=== PATIENT | male | born 1945 | race Caucasian/White ===

== ENCOUNTER 2017-04-27 08:37 | Day surgery (SDC) | payer OTHER ==
[~2017-04-27] VITALS: Ht 175.3 cm; Wt 107.4 kg
[~2017-04-27 08:37] MED LIST: AMLO5 PO; Aspir 8181 MG PO; CALCIUM PO; CYCL10 PO; Co Q-10300 MG PO; Depo-Testos200 MG/ML IM; FISH1000 PO; GLIM4 PO; Glucophage1000 MG PO; HYDCHL25; Humulin N100 UNIT/1 SQ; INS70/30I SC; IRON150C PO; IRON18 MG PO; LISI20; MELO7.5 PO; METF500; METO25ER PO; Micro-K10 MEQ; NIAC250ER; NIACIN ER1000 MG PO; NITR.6SL SL; Neurontin300 MG PO; Omeprazole20 M1; PRAV20 PO; Simvastatin20 MG PO; TAMS.4ER PO; VITAMIN D33000 UNIT PO; Zestril40 MG
== END 2017-04-27 10:40 | disposition home or self-care (01) ==
LOC: ORSCSDS 08:37
PROVIDERS: Internal Medicine Gastroenterology
PROC: 0DB48ZX Excision of Esophagogastric Junction, Via Natural or Artificial Opening Endoscopic, Diagnostic (ICD-10-PCS; principal; 2017-04-27 09:45)
DX: K74.69 Other cirrhosis of liver (principal); K76.0 Fatty (change of) liver, not elsewhere classified; Z87.891 Personal history of nicotine dependence; Z95.1 Presence of aortocoronary bypass graft; I48.91 Unspecified atrial fibrillation; I10 Essential (primary) hypertension; E11.42 Type 2 diabetes mellitus with diabetic polyneuropathy; Z79.01 Long term (current) use of anticoagulants; Z79.82 Long term (current) use of aspirin; Z79.4 Long term (current) use of insulin; Z79.899 Other long term (current) drug therapy
CPT/HCPCS: 82947; 88305; J7120

== ENCOUNTER 2018-03-29 00:23 | Day surgery (SDC) | payer OTHER ==
[~2018-03-29 00:23] MED LIST changes: -ATOR80 PO; -HEMOCYTE PO; -Humulin N100 UNIT/1 SC; -METOPROLOL TART75 MG PO; -REPA1 PO; -UBID100 PO
[2018-03-30] MEDS ORDERED: ATOR80 PO (11:21)
[2018-03-30] MEDS ORDERED: UBID100 PO (11:22)
[2018-03-30] MEDS ORDERED: HEMOCYTE PO (11:23)
[2018-03-30] MEDS ORDERED: Humulin N100 UNIT/1 SC ×2 (11:25)
[2018-03-30] MEDS ORDERED: METOPROLOL TART75 MG PO (11:27)
[2018-03-30] MEDS ORDERED: REPA1 PO (11:29)
== END 2018-03-29 12:26 | disposition home or self-care (01) ==
LOC: ATC 00:23
DX: M46.36 Infection of intervertebral disc (pyogenic), lumbar region (principal); I25.10 Atherosclerotic heart disease of native coronary artery without angina pectoris; E66.9 Obesity, unspecified; E11.9 Type 2 diabetes mellitus without complications; Z79.899 Other long term (current) drug therapy; B95.1 Streptococcus, group B, as the cause of diseases classified elsewhere
CPT/HCPCS: 96365; 96367; J0696; J0878

== ENCOUNTER → 2018-03-29 | Outpatient (CLI) | payer MEDICARE ==
[~2018-03-29] MED LIST changes: +ATOR80 PO; +HEMOCYTE PO; -HYDCHL25; +HYDCHL25 PO; +Humulin N100 UNIT/1 SC; +METOPROLOL TART75 MG PO; +REPA1 PO; +UBID100 PO
[2018-03-31 14:01] LABS: Stool Occult Bld Immuno 1 Negative (NEGATIVE)
== END | disposition home or self-care (01) ==
LOC: LAB SHORT 18:20 → LAB 18:20
PROVIDERS: Internal Medicine Gastroenterology
DX: D64.9 Anemia, unspecified (principal)
CPT/HCPCS: 82274

== ENCOUNTER 2018-03-30 00:09 | Day surgery (SDC) | payer OTHER ==
[~2018-03-30 00:09] MED LIST changes: -ATOR80 PO; -HEMOCYTE PO; -Humulin N100 UNIT/1 SC; -METOPROLOL TART75 MG PO; -REPA1 PO; -UBID100 PO
[2018-03-30] MEDS ORDERED: ATOR80 PO (11:21)
[2018-03-30] MEDS ORDERED: UBID100 PO (11:22)
[2018-03-30] MEDS ORDERED: HEMOCYTE PO (11:23)
[2018-03-30] MEDS ORDERED: Humulin N100 UNIT/1 SC ×2 (11:25)
[2018-03-30] MEDS ORDERED: METOPROLOL TART75 MG PO (11:27)
[2018-03-30] MEDS ORDERED: REPA1 PO (11:29)
== END 2018-03-30 11:51 | disposition home or self-care (01) ==
LOC: ATC 00:09
DX: M46.36 Infection of intervertebral disc (pyogenic), lumbar region (principal); I25.10 Atherosclerotic heart disease of native coronary artery without angina pectoris; E66.9 Obesity, unspecified; E11.9 Type 2 diabetes mellitus without complications; B95.1 Streptococcus, group B, as the cause of diseases classified elsewhere; Z79.899 Other long term (current) drug therapy
CPT/HCPCS: 96365; 96368; J0696; J0878

== ENCOUNTER → 2018-03-30 | Outpatient (CLI) | payer MEDICARE ==
[~2018-03-30] MED LIST changes: +ATOR80 PO; +HEMOCYTE PO; +Humulin N100 UNIT/1 SC; +METOPROLOL TART75 MG PO; +REPA1 PO; +UBID100 PO
[2018-04-02 13:58] LABS: Stool Occult Bld Immuno 1 Negative (NEGATIVE)
== END | disposition home or self-care (01) ==
LOC: LAB 08:21 → LAB SHORT 08:21
PROVIDERS: Internal Medicine Gastroenterology
DX: D64.9 Anemia, unspecified (principal)
CPT/HCPCS: 82274

== ENCOUNTER 2018-03-31 00:21 | Day surgery (SDC) | payer OTHER ==
[~2018-03-31 00:21] MED LIST changes: +ATOR80 PO; +HEMOCYTE PO; +Humulin N100 UNIT/1 SC; +METOPROLOL TART75 MG PO; +REPA1 PO; +UBID100 PO
== END 2018-03-31 11:50 | disposition home or self-care (01) ==
LOC: ATC 00:21
DX: M46.36 Infection of intervertebral disc (pyogenic), lumbar region (principal); I25.10 Atherosclerotic heart disease of native coronary artery without angina pectoris; E66.9 Obesity, unspecified; E11.9 Type 2 diabetes mellitus without complications; B95.1 Streptococcus, group B, as the cause of diseases classified elsewhere; Z79.899 Other long term (current) drug therapy
CPT/HCPCS: 96365; 96368; J0696; J0878

== ENCOUNTER 2018-04-01 10:51 | Day surgery (SDC) | payer OTHER | END 2018-04-01 12:00 | disposition home or self-care (01) | LOC: ATC 10:51 | DX: M46.36 Infection of intervertebral disc (pyogenic), lumbar region (principal); I25.10 Atherosclerotic heart disease of native coronary artery without angina pectoris; E66.9 Obesity, unspecified; E11.9 Type 2 diabetes mellitus without complications; B95.1 Streptococcus, group B, as the cause of diseases classified elsewhere; Z79.899 Other long term (current) drug therapy | CPT/HCPCS: 96365; 96367; J0696; J0878 ==

== ENCOUNTER 2018-04-02 08:59 | Day surgery (SDC) | payer OTHER | END 2018-04-02 10:10 | disposition home or self-care (01) | LOC: ATC 08:59 | DX: M46.36 Infection of intervertebral disc (pyogenic), lumbar region (principal); I25.10 Atherosclerotic heart disease of native coronary artery without angina pectoris; E66.9 Obesity, unspecified; E11.9 Type 2 diabetes mellitus without complications; B95.1 Streptococcus, group B, as the cause of diseases classified elsewhere; Z79.899 Other long term (current) drug therapy | CPT/HCPCS: 96365; 96367; J0696; J0878 ==

== ENCOUNTER 2018-04-03 00:09 | Day surgery (SDC) | payer OTHER ==
[2018-04-03 11:24] LABS: BASOPHILS ABSOLUTE AUTO 0.02 K/mm3 (0.00-0.23); BASOPHILS PERCENT AUTO 1 % (0-2); EOSINOPHILS PERCENT AUTO 5 % (0-6); Hematocrit 26.7 % (37.0-53.0); Hemoglobin 8.2 g/dL (13.5-17.5); IMMATURE GRAN ABSOLUTE AUTO 0.04 K/mm3 (0.00-0.10); IMMATURE GRAN PERCENT AUTO 1 % (0-1); LYMPHOCYTES ABSOLUTE AUTO 0.79 K/mm3 (0.84-5.20); LYMPHOCYTES PERCENT AUTO 18 % (21-46); MONOCYTES ABSOLUTE AUTO 0.31 K/mm3 (0.16-1.47); MONOCYTES PERCENT AUTO 7 % (4-13); Mean Corpuscular HGB 26.8 pg (26.0-34.0); Mean Corpuscular HGB Conc 30.7 g/dL (31.5-36.5); Mean Corpuscular Volume 87 fL (80-100); Mean Platelet Volume 9.2 fL (9.1-12.4); NEUTROPHILS ABSOLUTE AUTO 3.08 K/mm3 (1.96-9.15); NEUTROPHILS PERCENT AUTO 69 % (41-73); Platelet Count 199 K/mm3 (150-400); RDW Coefficient Variation 14.2 % (11.7-14.2); RDW Standard Deviation 44.3 fL (35.1-46.3); Red Blood Cell Count 3.06 M/mm3 (4.30-5.90); White Blood Cell Count 4.44 K/mm3 (4.00-11.30)
[2018-04-03 11:44] LABS: Alanine Aminotransfer (ALT/SGP 82 U/L (12-78); Albumin/Globulin Ratio 0.7 (0.8-1.8); Alk Phos 120 U/L (50-136); Anion Gap 9 mmol/L (6-16); Aspartate Aminotrans (AST/SGOT 44 U/L (12-37); Bilirubin, Total 0.3 mg/dL (0.1-1.0); Blood Urea Nitrogen 20 mg/dL (8-24); Bun/Creatinine Ratio 23.6 (12.0-20.0); CO2, Blood 25 mmol/L (21-32); CPK Creatine Kinase 187 U/L (39-308); Calcium, Blood 8.5 mg/dL (8.5-10.1); Chloride, Blood 106 mmol/L (98-108); Creatine Kinase MB 3.4 ng/mL (0.0-3.6); Creatine Kinase MB Index 1.8 (0.0-4.0); Creatinine, Blood 0.85 mg/dL (0.60-1.20); Globulin, Blood 4.1 g/dL (2.2-4.0); Glomerular Filtration Rate >60 (60-); Glucose, Blood 97 mg/dL (70-99); Potassium, Blood 4.2 mmol/L (3.5-5.5); Sodium, Blood 140 mmol/L (136-145); Total Protein, Blood 7.1 g/dL (6.4-8.2)
--- NOTE | 2018-04-03 15:51 | NUR ---
LAB RESULTS FROM TODAY FAXED TO DR. TINAJERO'S OFFICE.
== END 2018-04-03 23:05 | disposition home or self-care (01) ==
LOC: ATC 00:09
DX: M46.36 Infection of intervertebral disc (pyogenic), lumbar region (principal); I25.10 Atherosclerotic heart disease of native coronary artery without angina pectoris; E66.9 Obesity, unspecified; E11.9 Type 2 diabetes mellitus without complications; B95.1 Streptococcus, group B, as the cause of diseases classified elsewhere; Z79.899 Other long term (current) drug therapy
CPT/HCPCS: 80053; 82550; 82553; 85025; 86140; 96365; 96368; J0696; J0878

== ENCOUNTER 2018-04-04 00:02 | Day surgery (SDC) | payer OTHER | END 2018-04-04 12:10 | disposition home or self-care (01) | LOC: ATC 00:02 | DX: M46.36 Infection of intervertebral disc (pyogenic), lumbar region (principal); I25.10 Atherosclerotic heart disease of native coronary artery without angina pectoris; E66.9 Obesity, unspecified; E11.9 Type 2 diabetes mellitus without complications; B95.1 Streptococcus, group B, as the cause of diseases classified elsewhere; Z79.899 Other long term (current) drug therapy | CPT/HCPCS: 96365; 96368; J0696; J0878 ==

== ENCOUNTER 2018-04-05 00:10 | Day surgery (SDC) | payer OTHER | END 2018-04-05 11:02 | disposition home or self-care (01) | LOC: ATC 00:10 | DX: M46.36 Infection of intervertebral disc (pyogenic), lumbar region (principal); I25.10 Atherosclerotic heart disease of native coronary artery without angina pectoris; E66.9 Obesity, unspecified; E11.9 Type 2 diabetes mellitus without complications; Z79.899 Other long term (current) drug therapy; B95.1 Streptococcus, group B, as the cause of diseases classified elsewhere | CPT/HCPCS: 96365; 96368; J0696; J0878 ==

== ENCOUNTER 2018-04-06 00:15 | Day surgery (SDC) | payer OTHER | END 2018-04-06 11:11 | disposition home or self-care (01) | LOC: ATC 00:15 | DX: T81.42XA Infection following a procedure, deep incisional surgical site, initial encounter (principal); I25.10 Atherosclerotic heart disease of native coronary artery without angina pectoris; I48.91 Unspecified atrial fibrillation; I10 Essential (primary) hypertension; E11.9 Type 2 diabetes mellitus without complications; Z79.4 Long term (current) use of insulin; A49.01 Methicillin susceptible Staphylococcus aureus infection, unspecified site | CPT/HCPCS: 96365; 96368; J0696; J0878 ==

== ENCOUNTER 2018-04-07 00:58 | Day surgery (SDC) | payer OTHER | END 2018-04-07 10:45 | disposition home or self-care (01) | LOC: ATC 00:58 | DX: T81.49XA Infection following a procedure, other surgical site, initial encounter (principal); B99.8 Other infectious disease; I25.10 Atherosclerotic heart disease of native coronary artery without angina pectoris; I10 Essential (primary) hypertension; E11.9 Type 2 diabetes mellitus without complications | CPT/HCPCS: 96365; 96368; J0878; J1335 ==

== ENCOUNTER 2018-04-08 11:00 | Day surgery (SDC) | payer OTHER | END 2018-04-08 23:07 | disposition home or self-care (01) | LOC: ATC 11:00 | DX: T81.42XA Infection following a procedure, deep incisional surgical site, initial encounter (principal); A49.01 Methicillin susceptible Staphylococcus aureus infection, unspecified site | CPT/HCPCS: 96365; 96368; J0696; J0878 ==

== ENCOUNTER 2018-04-09 10:31 | Day surgery (SDC) | payer OTHER | END 2018-04-09 22:43 | disposition home or self-care (01) | LOC: ATC 10:31 | DX: T81.42XA Infection following a procedure, deep incisional surgical site, initial encounter (principal); A49.01 Methicillin susceptible Staphylococcus aureus infection, unspecified site; E11.9 Type 2 diabetes mellitus without complications; I25.10 Atherosclerotic heart disease of native coronary artery without angina pectoris | CPT/HCPCS: 96365; 96368; J0696; J0878 ==

== ENCOUNTER 2018-04-10 00:12 | Day surgery (SDC) | payer OTHER ==
[2018-04-10 11:23] LABS: Hematocrit 28.1 % (37.0-53.0); Hemoglobin 8.8 g/dL (13.5-17.5); Mean Corpuscular HGB 27.2 pg (26.0-34.0); Mean Corpuscular HGB Conc 31.3 g/dL (31.5-36.5); Mean Corpuscular Volume 87 fL (80-100); Mean Platelet Volume 9.2 fL (9.1-12.4); Platelet Count 190 K/mm3 (150-400); RDW Coefficient Variation 14.6 % (11.7-14.2); RDW Standard Deviation 46.5 fL (35.1-46.3); Red Blood Cell Count 3.23 M/mm3 (4.30-5.90); White Blood Cell Count 3.84 K/mm3 (4.00-11.30)
[2018-04-10 11:50] LABS: Alanine Aminotransfer (ALT/SGP 46 U/L (12-78); Albumin, Blood 3.4 g/dL (3.4-5.0); Albumin/Globulin Ratio 0.9 (0.8-1.8); Alk Phos 139 U/L (50-136); Anion Gap 8 mmol/L (6-16); Aspartate Aminotrans (AST/SGOT 29 U/L (12-37); Bilirubin, Total 0.4 mg/dL (0.1-1.0); Blood Urea Nitrogen 31 mg/dL (8-24); Bun/Creatinine Ratio 31.1 (12.0-20.0); CO2, Blood 24 mmol/L (21-32); CPK Creatine Kinase 394 U/L (39-308); Calcium, Blood 8.4 mg/dL (8.5-10.1); Chloride, Blood 108 mmol/L (98-108); Creatine Kinase MB 7.2 ng/mL (0.0-3.6); Creatine Kinase MB Index 1.8 (0.0-4.0); Globulin, Blood 3.6 g/dL (2.2-4.0); Glomerular Filtration Rate >60 (60-); Glucose, Blood 177 mg/dL (70-99); Potassium, Blood 4.7 mmol/L (3.5-5.5); Sodium, Blood 140 mmol/L (136-145)
--- NOTE | 2018-04-14 08:22 | NUR ---
CHARGE SHEET STATES DC TIME OF PT AT 1112 ON 04/10/18.
== END 2018-04-10 11:12 | disposition home or self-care (01) ==
LOC: ATC 00:12
PROVIDERS: Internal Medicine
DX: T81.42XA Infection following a procedure, deep incisional surgical site, initial encounter (principal); A49.01 Methicillin susceptible Staphylococcus aureus infection, unspecified site; E11.9 Type 2 diabetes mellitus without complications; I25.10 Atherosclerotic heart disease of native coronary artery without angina pectoris
CPT/HCPCS: 80053; 82550; 82553; 85027; 86140; 96365; 96368; J0696; J0878

== ENCOUNTER 2018-04-11 00:04 | Day surgery (SDC) | payer OTHER ==
--- NOTE | 2018-04-11 10:33 | NUR ---
DAPTOMYCIN: WHILE SPIKING BAG, CONTENTS OF THE BAG SPILLED OUT ON THE FLOOR, ORDERED ANOTHER BAG, PT WAS GIVEN COFFEE AND PATIENTLY WAITED FOR NEW BAG. SAMMY IN THE PHARMACY WAS NOTIFIED OF THIS ACCIDENT.
== END 2018-04-11 10:26 | disposition home or self-care (01) ==
LOC: ATC 00:04
DX: M46.36 Infection of intervertebral disc (pyogenic), lumbar region (principal); I25.10 Atherosclerotic heart disease of native coronary artery without angina pectoris; E66.9 Obesity, unspecified; E11.9 Type 2 diabetes mellitus without complications; Z79.899 Other long term (current) drug therapy; B95.1 Streptococcus, group B, as the cause of diseases classified elsewhere
CPT/HCPCS: 96365; 96367; J0696; J0878

== ENCOUNTER 2018-04-12 00:06 | Day surgery (SDC) | payer OTHER | END 2018-04-12 11:45 | disposition home or self-care (01) | LOC: ATC 00:06 | DX: M46.36 Infection of intervertebral disc (pyogenic), lumbar region (principal); I25.10 Atherosclerotic heart disease of native coronary artery without angina pectoris; E66.9 Obesity, unspecified; E11.9 Type 2 diabetes mellitus without complications; B95.1 Streptococcus, group B, as the cause of diseases classified elsewhere; Z79.899 Other long term (current) drug therapy; Z79.4 Long term (current) use of insulin | CPT/HCPCS: 96365; 96368; J0696; J0878 ==

== ENCOUNTER 2018-04-13 00:08 | Day surgery (SDC) | payer OTHER | END 2018-04-13 11:04 | disposition home or self-care (01) | LOC: ATC 00:08 | DX: M46.36 Infection of intervertebral disc (pyogenic), lumbar region (principal); I25.10 Atherosclerotic heart disease of native coronary artery without angina pectoris; E66.9 Obesity, unspecified; E11.9 Type 2 diabetes mellitus without complications; Z79.899 Other long term (current) drug therapy; B95.1 Streptococcus, group B, as the cause of diseases classified elsewhere; Z79.84 Long term (current) use of oral hypoglycemic drugs | CPT/HCPCS: 96365; 96368; J0696; J0878 ==

== ENCOUNTER 2018-04-14 00:52 | Day surgery (SDC) | payer OTHER | END 2018-04-14 11:30 | disposition home or self-care (01) | LOC: ATC 00:52 | DX: T81.42XA Infection following a procedure, deep incisional surgical site, initial encounter (principal); M46.36 Infection of intervertebral disc (pyogenic), lumbar region; B95.61 Methicillin susceptible Staphylococcus aureus infection as the cause of diseases classified elsewhere; B95.4 Other streptococcus as the cause of diseases classified elsewhere; E11.9 Type 2 diabetes mellitus without complications; I10 Essential (primary) hypertension; E78.5 Hyperlipidemia, unspecified; Z87.891 Personal history of nicotine dependence; I25.10 Atherosclerotic heart disease of native coronary artery without angina pectoris; I48.91 Unspecified atrial fibrillation; Z79.4 Long term (current) use of insulin | CPT/HCPCS: 96365; 96368; J0696; J0878 ==

== ENCOUNTER 2018-04-15 10:25 | Day surgery (SDC) | payer OTHER | END 2018-04-15 11:07 | disposition home or self-care (01) | LOC: ATC 10:25 | DX: M46.36 Infection of intervertebral disc (pyogenic), lumbar region (principal); Z98.1 Arthrodesis status; E11.9 Type 2 diabetes mellitus without complications; I48.91 Unspecified atrial fibrillation; Z79.4 Long term (current) use of insulin; I10 Essential (primary) hypertension; Z87.891 Personal history of nicotine dependence; B95.61 Methicillin susceptible Staphylococcus aureus infection as the cause of diseases classified elsewhere; B95.4 Other streptococcus as the cause of diseases classified elsewhere | CPT/HCPCS: 96365; 96368; J0696; J0878 ==

== ENCOUNTER 2018-04-16 10:23 | Day surgery (SDC) | payer OTHER | END 2018-04-16 11:15 | disposition home or self-care (01) | LOC: ATC 10:23 | DX: M46.36 Infection of intervertebral disc (pyogenic), lumbar region (principal); I25.10 Atherosclerotic heart disease of native coronary artery without angina pectoris; E66.9 Obesity, unspecified; E11.9 Type 2 diabetes mellitus without complications; Z79.899 Other long term (current) drug therapy; B95.1 Streptococcus, group B, as the cause of diseases classified elsewhere; Z79.84 Long term (current) use of oral hypoglycemic drugs | CPT/HCPCS: 96365; 96368; J0696; J0878 ==

== ENCOUNTER 2018-04-17 00:10 | Day surgery (SDC) | payer OTHER ==
[2018-04-17 11:28] LABS: BASOPHILS ABSOLUTE AUTO 0.01 K/mm3 (0.00-0.23); BASOPHILS PERCENT AUTO 0 % (0-2); EOSINOPHILS ABSOLUTE AUTO 0.57 K/mm3 (0.00-0.68); EOSINOPHILS PERCENT AUTO 12 % (0-6); Hematocrit 30.1 % (37.0-53.0); Hemoglobin 9.2 g/dL (13.5-17.5); IMMATURE GRAN ABSOLUTE AUTO 0.08 K/mm3 (0.00-0.10); IMMATURE GRAN PERCENT AUTO 2 % (0-1); LYMPHOCYTES PERCENT AUTO 17 % (21-46); MONOCYTES ABSOLUTE AUTO 0.34 K/mm3 (0.16-1.47); MONOCYTES PERCENT AUTO 7 % (4-13); Mean Corpuscular HGB 26.8 pg (26.0-34.0); Mean Corpuscular HGB Conc 30.6 g/dL (31.5-36.5); Mean Corpuscular Volume 88 fL (80-100); Mean Platelet Volume 9.3 fL (9.1-12.4); NEUTROPHILS PERCENT AUTO 61 % (41-73); NRBC ABSOLUTE 0.02 K/mm3 (0.00-0.02); NRBC Auto 0.4 /100 WBC (0.0-0.2); Platelet Count 136 K/mm3 (150-400); RDW Coefficient Variation 15.8 % (11.7-14.2); RDW Standard Deviation 50.1 fL (35.1-46.3); Red Blood Cell Count 3.43 M/mm3 (4.30-5.90)
[2018-04-17 11:47] LABS: Alanine Aminotransfer (ALT/SGP 46 U/L (12-78); Albumin, Blood 3.4 g/dL (3.4-5.0); Albumin/Globulin Ratio 0.9 (0.8-1.8); Alk Phos 162 U/L (50-136); Anion Gap 7 mmol/L (6-16); Aspartate Aminotrans (AST/SGOT 28 U/L (12-37); Bilirubin, Total 0.4 mg/dL (0.1-1.0); Blood Urea Nitrogen 30 mg/dL (8-24); Bun/Creatinine Ratio 31.3 (12.0-20.0); CO2, Blood 25 mmol/L (21-32); CPK Creatine Kinase 214 U/L (39-308); Chloride, Blood 107 mmol/L (98-108); Creatinine, Blood 0.96 mg/dL (0.60-1.20); Globulin, Blood 3.6 g/dL (2.2-4.0); Glomerular Filtration Rate >60 (60-); Glucose, Blood 248 mg/dL (70-99); Potassium, Blood 4.7 mmol/L (3.5-5.5); Sodium, Blood 139 mmol/L (136-145)
[2018-04-17 11:49] LABS: Creatine Kinase MB Index 1.9 (0.0-4.0)
== END 2018-04-17 11:38 | disposition home or self-care (01) ==
LOC: ATC 00:10
PROVIDERS: Internal Medicine
DX: M46.36 Infection of intervertebral disc (pyogenic), lumbar region (principal); I25.10 Atherosclerotic heart disease of native coronary artery without angina pectoris; E66.9 Obesity, unspecified; E11.9 Type 2 diabetes mellitus without complications; B95.1 Streptococcus, group B, as the cause of diseases classified elsewhere; Z79.84 Long term (current) use of oral hypoglycemic drugs
CPT/HCPCS: 80053; 82550; 82553; 85025; 86140; 96365; 96368; J0696; J0878

== ENCOUNTER 2018-04-18 00:14 | Day surgery (SDC) | payer OTHER | END 2018-04-18 11:32 | disposition home or self-care (01) | LOC: ATC 00:14 | DX: T81.42XA Infection following a procedure, deep incisional surgical site, initial encounter (principal); Z98.1 Arthrodesis status; B95.62 Methicillin resistant Staphylococcus aureus infection as the cause of diseases classified elsewhere; B95.4 Other streptococcus as the cause of diseases classified elsewhere | CPT/HCPCS: 96365; 96368; J0696; J0878 ==

== ENCOUNTER 2018-04-19 00:17 | Day surgery (SDC) | payer OTHER ==
--- NOTE | 2018-04-19 12:13 | NUR ---
PICC LINE: PICC LINE UNABLE TO FLUSH, TOOK DOWN DRESSING TO SEE IF LINE WAS BENT, LINE CONTINUED TO BE UNFLUSHABLE, CALLED FOR CATH RAMONA ORDER, WORKED LINE AND FINALLY CATH FLOW WAS ABLE TO BE INSTILLED, LINE COVERED AND PT TO BE BACK IN AT 9:30 TOMORROW. INSTRUCTED PT THAT LINE IS NOT TO BE USED UNLESS THEY TAKE OUT CATH RAMONA.
== END 2018-04-19 11:40 | disposition home or self-care (01) ==
LOC: ATC 00:17
DX: Z45.2 Encounter for adjustment and management of vascular access device (principal); M46.36 Infection of intervertebral disc (pyogenic), lumbar region; I25.10 Atherosclerotic heart disease of native coronary artery without angina pectoris; E66.9 Obesity, unspecified; E11.9 Type 2 diabetes mellitus without complications; Z79.899 Other long term (current) drug therapy; B95.1 Streptococcus, group B, as the cause of diseases classified elsewhere; Z79.84 Long term (current) use of oral hypoglycemic drugs
CPT/HCPCS: 36593; 96365; 96368; J0696; J0878; J2997

== ENCOUNTER 2018-04-20 00:07 | Day surgery (SDC) | payer OTHER | END 2018-04-20 09:48 | disposition home or self-care (01) | LOC: ATC 00:07 | DX: M46.36 Infection of intervertebral disc (pyogenic), lumbar region (principal); I25.10 Atherosclerotic heart disease of native coronary artery without angina pectoris; E66.9 Obesity, unspecified; E11.9 Type 2 diabetes mellitus without complications; B95.1 Streptococcus, group B, as the cause of diseases classified elsewhere; Z79.899 Other long term (current) drug therapy; Z79.4 Long term (current) use of insulin | CPT/HCPCS: 96365; 96367; J0696; J0878 ==

== ENCOUNTER 2018-04-21 07:45 | Day surgery (SDC) | payer OTHER | END 2018-04-21 10:58 | disposition home or self-care (01) | LOC: ATC 07:45 | DX: T81.42XA Infection following a procedure, deep incisional surgical site, initial encounter (principal); Z98.1 Arthrodesis status | CPT/HCPCS: 96365; 96368; J0696; J0878 ==

== ENCOUNTER 2018-04-22 10:39 | Day surgery (SDC) | payer OTHER ==
--- NOTE | 2018-04-22 11:40 | NUR ---
PT REPORTS DIARRHEA SUSPECTED SECONDARY TO ANTIBIOTIC USED. DISCUSSED PROBIOTICS AND HYDRATION. PT VERBALIZED UNDERSTANDING.
== END 2018-04-22 11:38 | disposition home or self-care (01) ==
LOC: ATC 10:39
DX: T81.42XA Infection following a procedure, deep incisional surgical site, initial encounter (principal); M46.36 Infection of intervertebral disc (pyogenic), lumbar region; Z98.1 Arthrodesis status; B95.61 Methicillin susceptible Staphylococcus aureus infection as the cause of diseases classified elsewhere; B95.4 Other streptococcus as the cause of diseases classified elsewhere; E11.9 Type 2 diabetes mellitus without complications; I25.10 Atherosclerotic heart disease of native coronary artery without angina pectoris; Z79.4 Long term (current) use of insulin; Z95.1 Presence of aortocoronary bypass graft; I10 Essential (primary) hypertension; E78.5 Hyperlipidemia, unspecified
CPT/HCPCS: 96365; 96368; J0696; J0878

== ENCOUNTER 2018-04-23 10:50 | Day surgery (SDC) | payer OTHER | END 2018-04-23 11:48 | disposition home or self-care (01) | LOC: ATC 10:50 | DX: M46.36 Infection of intervertebral disc (pyogenic), lumbar region (principal); Z98.1 Arthrodesis status; I25.10 Atherosclerotic heart disease of native coronary artery without angina pectoris; I48.91 Unspecified atrial fibrillation; E11.9 Type 2 diabetes mellitus without complications; Z79.899 Other long term (current) drug therapy; Z79.82 Long term (current) use of aspirin; Z79.4 Long term (current) use of insulin | CPT/HCPCS: 96365; 96368; J0696; J0878 ==

== ENCOUNTER 2018-04-24 00:20 | Day surgery (SDC) | payer OTHER ==
[2018-04-24 11:23] LABS: Hematocrit 32.5 % (37.0-53.0); Mean Corpuscular HGB 26.6 pg (26.0-34.0); Mean Corpuscular HGB Conc 30.8 g/dL (31.5-36.5); Mean Corpuscular Volume 86 fL (80-100); Mean Platelet Volume 9.5 fL (9.1-12.4); Platelet Count 122 K/mm3 (150-400); RDW Coefficient Variation 16.5 % (11.7-14.2); RDW Standard Deviation 51.8 fL (35.1-46.3); Red Blood Cell Count 3.76 M/mm3 (4.30-5.90); White Blood Cell Count 7.11 K/mm3 (4.00-11.30)
[2018-04-24 11:44] LABS: Alanine Aminotransfer (ALT/SGP 53 U/L (12-78); Albumin, Blood 3.5 g/dL (3.4-5.0); Albumin/Globulin Ratio 0.9 (0.8-1.8); Alk Phos 173 U/L (50-136); Anion Gap 9 mmol/L (6-16); Aspartate Aminotrans (AST/SGOT 31 U/L (12-37); Bilirubin, Total 0.3 mg/dL (0.1-1.0); Blood Urea Nitrogen 34 mg/dL (8-24); CO2, Blood 21 mmol/L (21-32); CPK Creatine Kinase 206 U/L (39-308); Calcium, Blood 9.2 mg/dL (8.5-10.1); Chloride, Blood 109 mmol/L (98-108); Creatinine, Blood 1.03 mg/dL (0.60-1.20); Globulin, Blood 3.9 g/dL (2.2-4.0); Glomerular Filtration Rate >60 (60-); Glucose, Blood 183 mg/dL (70-99); Potassium, Blood 4.5 mmol/L (3.5-5.5); Sodium, Blood 139 mmol/L (136-145); Total Protein, Blood 7.4 g/dL (6.4-8.2)
[2018-04-24 11:45] LABS: Creatine Kinase MB 7.1 ng/mL (0.0-3.6); Creatine Kinase MB Index 3.4 (0.0-4.0)
--- NOTE | 2018-04-24 13:58 | NUR ---
LAB RESULTS FROM TODAY FAXED TO DR. TINAJERO AT [phone].
== END 2018-04-24 11:36 | disposition home or self-care (01) ==
LOC: ATC 00:20
PROVIDERS: Internal Medicine
DX: T81.42XA Infection following a procedure, deep incisional surgical site, initial encounter (principal); Z98.1 Arthrodesis status
CPT/HCPCS: 80053; 82550; 82553; 85027; 86140; 96365; 96368; J0696; J0878

== ENCOUNTER 2018-04-25 00:04 | Day surgery (SDC) | payer OTHER | END 2018-04-25 11:15 | disposition home or self-care (01) | LOC: ATC 00:04 | DX: T81.42XA Infection following a procedure, deep incisional surgical site, initial encounter (principal); Z98.1 Arthrodesis status; B95.61 Methicillin susceptible Staphylococcus aureus infection as the cause of diseases classified elsewhere; E11.9 Type 2 diabetes mellitus without complications; I25.10 Atherosclerotic heart disease of native coronary artery without angina pectoris | CPT/HCPCS: 96365; 96368; J0696; J0878 ==

== ENCOUNTER 2018-04-26 00:11 | Day surgery (SDC) | payer OTHER | END 2018-04-26 11:26 | disposition home or self-care (01) | LOC: ATC 00:11 | DX: M46.36 Infection of intervertebral disc (pyogenic), lumbar region (principal); Z98.1 Arthrodesis status; T81.49XA Infection following a procedure, other surgical site, initial encounter; I25.10 Atherosclerotic heart disease of native coronary artery without angina pectoris; E11.9 Type 2 diabetes mellitus without complications; I48.91 Unspecified atrial fibrillation; Z79.82 Long term (current) use of aspirin; Z79.899 Other long term (current) drug therapy; Z79.4 Long term (current) use of insulin | CPT/HCPCS: 96365; 96368; J0696; J0878 ==

== ENCOUNTER 2018-04-27 00:15 | Day surgery (SDC) | payer OTHER | END 2018-04-27 11:38 | disposition home or self-care (01) | LOC: ATC 00:15 | DX: T81.42XA Infection following a procedure, deep incisional surgical site, initial encounter (principal); M46.36 Infection of intervertebral disc (pyogenic), lumbar region; Z98.1 Arthrodesis status; E11.9 Type 2 diabetes mellitus without complications; Z79.4 Long term (current) use of insulin; I25.10 Atherosclerotic heart disease of native coronary artery without angina pectoris; I48.91 Unspecified atrial fibrillation; Z95.1 Presence of aortocoronary bypass graft; B95.61 Methicillin susceptible Staphylococcus aureus infection as the cause of diseases classified elsewhere; B95.4 Other streptococcus as the cause of diseases classified elsewhere | CPT/HCPCS: 96365; 96368; J0696; J0878 ==

== ENCOUNTER 2018-04-28 00:14 | Day surgery (SDC) | payer OTHER | END 2018-04-28 11:58 | disposition home or self-care (01) | LOC: ATC 00:14 | DX: T81.42XA Infection following a procedure, deep incisional surgical site, initial encounter (principal); E11.9 Type 2 diabetes mellitus without complications; E78.5 Hyperlipidemia, unspecified; I10 Essential (primary) hypertension | CPT/HCPCS: 96365; 96368; J0696; J0878 ==

== ENCOUNTER 2018-04-29 10:23 | Day surgery (SDC) | payer OTHER | END 2018-04-29 11:07 | disposition home or self-care (01) | LOC: ATC 10:23 | DX: T81.42XA Infection following a procedure, deep incisional surgical site, initial encounter (principal); M46.36 Infection of intervertebral disc (pyogenic), lumbar region; I25.10 Atherosclerotic heart disease of native coronary artery without angina pectoris; I48.91 Unspecified atrial fibrillation; I10 Essential (primary) hypertension; E11.9 Type 2 diabetes mellitus without complications; Z79.4 Long term (current) use of insulin; B95.61 Methicillin susceptible Staphylococcus aureus infection as the cause of diseases classified elsewhere; B95.4 Other streptococcus as the cause of diseases classified elsewhere | CPT/HCPCS: 96365; 96368; J0696; J0878 ==

== ENCOUNTER 2018-04-30 10:51 | Day surgery (SDC) | payer OTHER | END 2018-04-30 11:33 | disposition home or self-care (01) | LOC: ATC 10:51 | DX: M46.36 Infection of intervertebral disc (pyogenic), lumbar region (principal); I25.10 Atherosclerotic heart disease of native coronary artery without angina pectoris; Z98.1 Arthrodesis status; I48.91 Unspecified atrial fibrillation; E11.9 Type 2 diabetes mellitus without complications; Z79.4 Long term (current) use of insulin; I10 Essential (primary) hypertension; E78.5 Hyperlipidemia, unspecified; Z87.891 Personal history of nicotine dependence; B95.61 Methicillin susceptible Staphylococcus aureus infection as the cause of diseases classified elsewhere; B95.4 Other streptococcus as the cause of diseases classified elsewhere | CPT/HCPCS: 96365; 96368; J0696; J0878 ==

== ENCOUNTER 2018-05-01 00:10 | Day surgery (SDC) | payer OTHER ==
[2018-05-01 12:00] LABS: BASOPHILS ABSOLUTE AUTO 0.01 K/mm3 (0.00-0.23); BASOPHILS PERCENT AUTO 0 % (0-2); EOSINOPHILS ABSOLUTE AUTO 0.76 K/mm3 (0.00-0.68); EOSINOPHILS PERCENT AUTO 27 % (0-6); Hematocrit 31.1 % (37.0-53.0); Hemoglobin 9.5 g/dL (13.5-17.5); IMMATURE GRAN ABSOLUTE AUTO 0.01 K/mm3 (0.00-0.10); IMMATURE GRAN PERCENT AUTO 0 % (0-1); LYMPHOCYTES ABSOLUTE AUTO 0.74 K/mm3 (0.84-5.20); LYMPHOCYTES PERCENT AUTO 26 % (21-46); MONOCYTES PERCENT AUTO 7 % (4-13); Mean Corpuscular HGB 26.4 pg (26.0-34.0); Mean Corpuscular HGB Conc 30.5 g/dL (31.5-36.5); Mean Corpuscular Volume 86 fL (80-100); Mean Platelet Volume 9.8 fL (9.1-12.4); NEUTROPHILS PERCENT AUTO 39 % (41-73); Platelet Count 138 K/mm3 (150-400); RDW Coefficient Variation 16.3 % (11.7-14.2); RDW Standard Deviation 51.3 fL (35.1-46.3); White Blood Cell Count 2.82 K/mm3 (4.00-11.30)
[2018-05-01 12:15] LABS: Alanine Aminotransfer (ALT/SGP 44 U/L (12-78); Albumin, Blood 3.4 g/dL (3.4-5.0); Albumin/Globulin Ratio 0.9 (0.8-1.8); Alk Phos 140 U/L (50-136); Anion Gap 5 mmol/L (6-16); Aspartate Aminotrans (AST/SGOT 26 U/L (12-37); Bilirubin, Total 0.3 mg/dL (0.1-1.0); Blood Urea Nitrogen 24 mg/dL (8-24); Bun/Creatinine Ratio 23.3 (12.0-20.0); CO2, Blood 25 mmol/L (21-32); CPK Creatine Kinase 227 U/L (39-308); Calcium, Blood 8.8 mg/dL (8.5-10.1); Chloride, Blood 108 mmol/L (98-108); Creatine Kinase MB 6.4 ng/mL (0.0-3.6); Creatine Kinase MB Index 2.8 (0.0-4.0); Creatinine, Blood 1.03 mg/dL (0.60-1.20); Globulin, Blood 3.7 g/dL (2.2-4.0); Glomerular Filtration Rate >60 (60-); Glucose, Blood 212 mg/dL (70-99); Potassium, Blood 5.1 mmol/L (3.5-5.5); Sodium, Blood 138 mmol/L (136-145); Total Protein, Blood 7.1 g/dL (6.4-8.2)
--- NOTE | 2018-05-01 14:02 | NUR ---
LAB RESULTS FROM TODAY FAXED TO DR. TINAJERO'S OFFICE.
== END 2018-05-01 22:41 | disposition home or self-care (01) ==
LOC: ATC 00:10
PROVIDERS: Internal Medicine
DX: T81.42XA Infection following a procedure, deep incisional surgical site, initial encounter (principal); I25.10 Atherosclerotic heart disease of native coronary artery without angina pectoris; E11.9 Type 2 diabetes mellitus without complications
CPT/HCPCS: 80053; 82550; 82553; 85025; 86140; 96365; 96368; J0696; J0878

== ENCOUNTER 2018-05-02 00:23 | Day surgery (SDC) | payer OTHER | END 2018-05-02 11:30 | disposition home or self-care (01) | LOC: ATC 00:23 | DX: T81.49XA Infection following a procedure, other surgical site, initial encounter (principal); M46.36 Infection of intervertebral disc (pyogenic), lumbar region; Z98.1 Arthrodesis status; E11.9 Type 2 diabetes mellitus without complications; I48.91 Unspecified atrial fibrillation | CPT/HCPCS: 96365; 96368; J0696; J0878 ==

== ENCOUNTER 2018-05-03 00:10 | Day surgery (SDC) | payer OTHER | END 2018-05-03 11:25 | disposition home or self-care (01) | LOC: ATC 00:10 | DX: M46.36 Infection of intervertebral disc (pyogenic), lumbar region (principal); I25.10 Atherosclerotic heart disease of native coronary artery without angina pectoris; E66.9 Obesity, unspecified; E11.9 Type 2 diabetes mellitus without complications; B95.1 Streptococcus, group B, as the cause of diseases classified elsewhere; Z79.899 Other long term (current) drug therapy | CPT/HCPCS: 96365; 96368; J0696; J0878 ==

== ENCOUNTER 2018-05-04 00:25 | Day surgery (SDC) | payer OTHER | END 2018-05-04 11:28 | disposition home or self-care (01) | LOC: ATC 00:25 | DX: M46.36 Infection of intervertebral disc (pyogenic), lumbar region (principal); I25.10 Atherosclerotic heart disease of native coronary artery without angina pectoris; E66.9 Obesity, unspecified; E11.9 Type 2 diabetes mellitus without complications; Z79.899 Other long term (current) drug therapy; B95.1 Streptococcus, group B, as the cause of diseases classified elsewhere; Z79.84 Long term (current) use of oral hypoglycemic drugs | CPT/HCPCS: 96365; 96368; J0696; J0878 ==

== ENCOUNTER 2021-07-24 09:35 | Day surgery (SDC) | payer OTHER ==
[~2021-07-24] VITALS: Ht 175.3 cm; Wt 96.7 kg
[~2021-07-24 09:35] MED LIST changes: +Aspirin EC81 MG PO; +GABA600 PO; +Minocycline HC100 MG PO; +OMEPRAZOLE MAGN20 MG PO; +Omega 3 1,0001 EACH PO; +REPA2 PO
== END 2021-07-24 11:55 | disposition home or self-care (01) ==
LOC: ORSCSDS 09:35
PROVIDERS: Internal Medicine Gastroenterology
PROC: 0DB68ZX Excision of Stomach, Via Natural or Artificial Opening Endoscopic, Diagnostic (ICD-10-PCS; principal; 2021-07-24 10:45)
DX: K74.60 Unspecified cirrhosis of liver (principal); R63.4 Abnormal weight loss; K76.0 Fatty (change of) liver, not elsewhere classified; G47.33 Obstructive sleep apnea (adult) (pediatric); I10 Essential (primary) hypertension; E11.9 Type 2 diabetes mellitus without complications; I25.10 Atherosclerotic heart disease of native coronary artery without angina pectoris; Z95.1 Presence of aortocoronary bypass graft; Z79.82 Long term (current) use of aspirin; Z79.4 Long term (current) use of insulin; Z79.899 Other long term (current) drug therapy
CPT/HCPCS: 82947; 88305; 88342; J0461; J2405; J2704; J7120

== ENCOUNTER 2022-04-02 05:21 | Observation (INO) | payer OTHER ==
[~2022-04-02] VITALS: Ht 167.6 cm; Wt 81.7 kg
[~2022-04-02 05:21] MED LIST changes: +GABA300 PO; -GABA600 PO; +GLUCOPHAGE1000 M1 PO; -Glucophage1000 MG PO; +LISI20 PO; +METO50 PO; -METOPROLOL TART75 MG PO; +MINOCYCLINE HC100 M2 PO; -Minocycline HC100 MG PO; -Zestril40 MG
[2022-04-02 05:51] LABS: BASOPHILS ABSOLUTE AUTO 0.02 K/mm3 (0.00-0.23); BASOPHILS PERCENT AUTO 0 % (0-2); EOSINOPHILS ABSOLUTE AUTO 0.01 K/mm3 (0.00-0.68); EOSINOPHILS PERCENT AUTO 0 % (0-6); Hematocrit 32.9 % (37.0-53.0); Hemoglobin 11.4 g/dL (13.5-17.5); IMMATURE GRAN ABSOLUTE AUTO 0.34 K/mm3 (0.00-0.10); IMMATURE GRAN PERCENT AUTO 3 % (0-1); LYMPHOCYTES ABSOLUTE AUTO 0.41 K/mm3 (0.84-5.20); LYMPHOCYTES PERCENT AUTO 4 % (21-46); MONOCYTES ABSOLUTE AUTO 0.38 K/mm3 (0.16-1.47); MONOCYTES PERCENT AUTO 4 % (4-13); Mean Corpuscular HGB 31.4 pg (26.0-34.0); Mean Corpuscular HGB Conc 34.7 g/dL (31.5-36.5); Mean Corpuscular Volume 91 fL (80-100); Mean Platelet Volume 9.9 fL (9.1-12.4); NEUTROPHILS ABSOLUTE AUTO 9.07 K/mm3 (1.96-9.15); NEUTROPHILS PERCENT AUTO 89 % (41-73); NRBC ABSOLUTE 0.02 K/mm3 (0.00-0.02); NRBC Auto 0.2 /100 WBC (0.0-0.2); Platelet Count 79 K/mm3 (150-400); RDW Coefficient Variation 12.8 % (11.7-14.2); RDW Standard Deviation 42.1 fL (35.1-46.3); Red Blood Cell Count 3.63 M/mm3 (4.30-5.90); White Blood Cell Count 10.23 K/mm3 (4.00-11.30)
[2022-04-02 06:04] LABS: Albumin, Blood 3.3 g/dL (3.4-5.0); Albumin/Globulin Ratio 1.1 (0.8-1.8); Bilirubin, Total 0.8 mg/dL (0.1-1.0); Bun/Creatinine Ratio 28.1 (12.0-20.0); Calcium, Blood 8.7 mg/dL (8.5-10.1); Creatinine, Blood 1.99 mg/dL (0.60-1.20); Globulin, Blood 3.1 g/dL (2.2-4.0); Potassium, Blood 3.7 mmol/L (3.5-5.5); Total Protein, Blood 6.4 g/dL (6.4-8.2)
[2022-04-02 07:38] LABS: Influenza A, PCR NEGATIVE (NEGATIVE); Influenza B, PCR NEGATIVE (NEGATIVE); Resp Syncytial Virus, PCR NEGATIVE (NEGATIVE); SARS-Cov-2 (COVID-19) PCR, MMC NEGATIVE (NEGATIVE)
[2022-04-02 09:42] LABS: Source, Urine Voided
[2022-04-02 09:54] LABS: Appearance, Urine Clear (Clear); Bilirubin, Urine Neg (Neg); Blood, Urine Neg (Neg); Color, Urine Yellow (P-Yellow); Glucose Qualitative, Urine 4+ (Neg); Ketones, Urine Neg (Neg); Leukocyte Esterase, Urine Neg (Neg); Nitrite, Urine Neg (Neg); Protein, Urine 1+ (Neg); Urobilinogen, Urine NORM (Normal)
[2022-04-02] MEDS ORDERED: FUROSEMIDE40 MG PO (13:39)
--- NOTE | 2022-04-02 16:43 | NUR ---
SHIFT SUMMARY PATIENT IS ALERT AND ORIENTED. PATIENT IS A RECENT ADMIT FROM ED FOR ELEVATED TROPONINS. DR IS AWARE OF ELEVATED TROPS. DR ORDERED AN ECHO FOR FURTHER EVALUATION. PATIENT HAS HAD NO COMPLAINTS OF PAIN, NAUSEA, SOB OR VOMITTING THIS SHIFT. BED IN LOCKED AND LOWEST POSITION. CALL LIGHT IN PLACE. WILL MONITOR UNTIL SHIFT CHANGE.
--- NOTE | 2022-04-02 23:01 | NUR ---
Hospitalist made aware of critical lab.
--- NOTE | 2022-04-03 03:08 | NUR ---
Patient resting in bed, no complaints of pain or discomfort.
[2022-04-03 05:02] LABS: Hemoglobin 10.6 g/dL (13.5-17.5); Mean Corpuscular HGB 31.4 pg (26.0-34.0); Mean Corpuscular HGB Conc 34.2 g/dL (31.5-36.5); Mean Corpuscular Volume 92 fL (80-100); Mean Platelet Volume 9.8 fL (9.1-12.4); Platelet Count 73 K/mm3 (150-400); RDW Coefficient Variation 12.7 % (11.7-14.2); RDW Standard Deviation 42.6 fL (35.1-46.3); Red Blood Cell Count 3.38 M/mm3 (4.30-5.90); White Blood Cell Count 8.82 K/mm3 (4.00-11.30)
[2022-04-03 05:49] LABS: BAND PERCENT MAN 19 % (0-8); BASOPHILS PERCENT MAN 0 % (0-2); EOSINOPHILS PERCENT MAN 0 % (0-6); LYMPHOCYTES ABSOLUTE MAN 0.26 K/mm3 (0.84-5.20); LYMPHOCYTES PERCENT MAN 3 % (21-46); MONOCYTES ABSOLUTE MAN 0.17 K/mm3 (0.16-1.47); MONOCYTES PERCENT MAN 2 % (4-13); NEUTROPHILS ABSOLUTE MAN 8.37 K/mm3 (1.96-9.15); SEG NEUTROPHILS PERCENT MAN 76 % (41-73); TOTAL CELLS COUNTED 100
[2022-04-03 06:22] LABS: Albumin, Blood 2.8 g/dL (3.4-5.0); Albumin/Globulin Ratio 0.8 (0.8-1.8); Bilirubin, Total 1.1 mg/dL (0.1-1.0); Bun/Creatinine Ratio 33.3 (12.0-20.0); Calcium, Blood 8.5 mg/dL (8.5-10.1); Creatinine, Blood 1.5 mg/dL (0.60-1.20); Globulin, Blood 3.4 g/dL (2.2-4.0); Potassium, Blood 3.8 mmol/L (3.5-5.5); Total Protein, Blood 6.2 g/dL (6.4-8.2)
--- NOTE | 2022-04-03 17:55 | NUR ---
SHIFT SUMMARY: PT ALERT AND ORIENTED X3-4. PT PLEASANT AND COOPERATIVE WITH ALL CARE. PT WORKED WITH PHYSICAL THERAPY THIS AM WHO STATED PT IS A ONE PERSON MINIMAL ASSIST WITH A WALKER. RECEIVED SEVERAL CALLS FROM TELEMETRY TODAY THAT STATED PT WAS HAVING VENT. BIGEMINY WELL TACHYCARDIA AROUND 110-120BPM. PT STARTED SPIKING FEVERS AROUND 1500 AT 100.7. GAVE PT TYLENOL WHICH DID NOT HELP AND HAD A SECOND FEVER OF 101.[address] AVINA WHO SAID TO GET A URINE AND BLOOD CULTURE. PT HIGHEST TEMP WAS 103.1. PENDING CULTURES. COD WASHCLOTH ON FOREHEAD AND ICE PACKS UNDER ARMPITS. AT BEDSIDE. PT HANDS AND FEET NUMBNESS/TINGLY. DR. AVINA AWARE. CALL LIGHT IN REACH. BED IN LOWEST POSITION. WILL CONTINUE TO MONITOR.
--- NOTE | 2022-04-04 04:57 | NUR ---
PT IS A&O4,SB ASSIST TO BR USING URINAL, PT AFREBRILE THROUGHOUT SHIFT, NO ACUTE OVERNIGHT EVENTS
[2022-04-04 09:30] LABS: BASOPHILS ABSOLUTE AUTO 0.02 K/mm3 (0.00-0.23); BASOPHILS PERCENT AUTO 0 % (0-2); EOSINOPHILS ABSOLUTE AUTO 0.03 K/mm3 (0.00-0.68); EOSINOPHILS PERCENT AUTO 1 % (0-6); Hematocrit 31.9 % (37.0-53.0); Hemoglobin 10.9 g/dL (13.5-17.5); IMMATURE GRAN ABSOLUTE AUTO 0.03 K/mm3 (0.00-0.10); IMMATURE GRAN PERCENT AUTO 1 % (0-1); LYMPHOCYTES ABSOLUTE AUTO 0.38 K/mm3 (0.84-5.20); LYMPHOCYTES PERCENT AUTO 6 % (21-46); MONOCYTES ABSOLUTE AUTO 0.39 K/mm3 (0.16-1.47); MONOCYTES PERCENT AUTO 6 % (4-13); Mean Corpuscular HGB 31.1 pg (26.0-34.0); Mean Corpuscular HGB Conc 34.2 g/dL (31.5-36.5); Mean Corpuscular Volume 91 fL (80-100); NEUTROPHILS ABSOLUTE AUTO 5.34 K/mm3 (1.96-9.15); NEUTROPHILS PERCENT AUTO 86 % (41-73); Platelet Count 81 K/mm3 (150-400); RDW Coefficient Variation 12.6 % (11.7-14.2); RDW Standard Deviation 41.8 fL (35.1-46.3); White Blood Cell Count 6.19 K/mm3 (4.00-11.30)
[2022-04-04 09:43] LABS: Bun/Creatinine Ratio 36.4 (12.0-20.0); Calcium, Blood 8.6 mg/dL (8.5-10.1); Creatinine, Blood 1.1 mg/dL (0.60-1.20); Potassium, Blood 3.8 mmol/L (3.5-5.5)
--- NOTE | 2022-04-04 16:46 | NUR ---
DISCHARGE NOTE: PT EDUCATED ON NEW DOSE ON DISCHARGE MEDICATIONS, HYDRATION AND FOLLOW UP WITH PCP. PT IV REMOVED W/O DIFFICULTY AND CATHETER INTACTED. PT DRESSED SELF AND SPOUSE PACKED PERSONAL BELONGINGS. PT ESCORTED TO LOBBY VIA WC BY TALENT ACQUISITION MANAGER AND SPOUSE TRANSPORTED PT HOME ON [employer].
== END 2022-04-04 16:25 | disposition home health service (06) ==
LOC: ER 05:21 → MEDS 11:55
PROVIDERS: Emergency Medicine; Internal Medicine; Student in an Organized Health Care Education/Training Program; ADMIT Internal Medicine
DX: I95.9 Hypotension, unspecified (principal); R77.8 Other specified abnormalities of plasma proteins; N17.9 Acute kidney failure, unspecified; D69.6 Thrombocytopenia, unspecified; E11.9 Type 2 diabetes mellitus without complications; K74.60 Unspecified cirrhosis of liver; K76.0 Fatty (change of) liver, not elsewhere classified; N40.0 Benign prostatic hyperplasia without lower urinary tract symptoms; E78.5 Hyperlipidemia, unspecified; Z95.1 Presence of aortocoronary bypass graft; I25.10 Atherosclerotic heart disease of native coronary artery without angina pectoris; E11.42 Type 2 diabetes mellitus with diabetic polyneuropathy; Z79.84 Long term (current) use of oral hypoglycemic drugs; Z20.822 Contact with and (suspected) exposure to COVID-19
CPT/HCPCS: 0241U; 36415; 80048; 80053; 82947; 83690; 84484; 85007; 85025; 85027; 93005; 93010; 93306; 97110; 97116; 97161; 97530; A9270; J1650; J1815; J7030

== ENCOUNTER 2023-02-18 08:39 | Day surgery (SDC) | payer OTHER ==
[~2023-02-18] VITALS: Ht 167.6 cm; Wt 96.2 kg
[2023-02-18] VITALS (11 sets, daily range): BP systolic 105–153; BP diastolic 52–68
[~2023-02-18 08:39] MED LIST changes: +ACET325 PO; +AMOCLA875 PO; +COENZYME Q-10200 M1 PO; +FUROSEMIDE40 MG PO; +JARDIANCE25 MG PO; +MIRALAX17 GM PO; +NIACIN PO; +NOVOLIN N100 UNIT/2 SC; +OXYC5 PO; +VISBIOME 112.51 EACH PO; +Vitamin D1000 UNI1 PO
[2023-02-18 10:16] LABS: Bun/Creatinine Ratio 25.5 (12.0-20.0); Calcium, Blood 9.3 mg/dL (8.5-10.1); Creatinine, Blood 1.1 mg/dL (0.60-1.20); Potassium, Blood 4.3 mmol/L (3.5-5.5)
--- NOTE | 2023-02-18 10:45 | NUR ---
DARK BLUE/PURPLE COLORATION COVERING MOST OF PATIENT'S CALFS, BUT NOT ALL. THIS WAS POINTED OUT TO VISUAL LEAD AT BEDSIDE.
--- NOTE | 2023-02-18 16:51 | NUR ---
Discharge instructions reviewed with patient. Patient verbalizes understanding. Copy given to patient to take home. Prescription sent in electronically. Patient States Post-Procedure ride home has been arranged. Discharged via wheelchair to private car for ride home.
== END 2023-02-18 16:45 | disposition home or self-care (01) ==
LOC: ORSCMMR 08:39 → ORD 10:15 → ORSCMMR 10:15
PROVIDERS: Nurse Anesthetist, Certified Registered; Surgery
PROC: 0WUF4JZ Supplement Abdominal Wall with Synthetic Substitute, Percutaneous Endoscopic Approach (ICD-10-PCS; principal; 2023-02-18 10:15)
PROC: 8E0W4CZ Robotic Assisted Procedure of Trunk Region, Percutaneous Endoscopic Approach (ICD-10-PCS; principal; 2023-02-18 10:15)
DX: K43.2 Incisional hernia without obstruction or gangrene (principal); K43.9 Ventral hernia without obstruction or gangrene; E11.22 Type 2 diabetes mellitus with diabetic chronic kidney disease; I12.9 Hypertensive chronic kidney disease with stage 1 through stage 4 chronic kidney disease, or unspecified chronic kidney disease; N18.9 Chronic kidney disease, unspecified; I25.10 Atherosclerotic heart disease of native coronary artery without angina pectoris; E11.40 Type 2 diabetes mellitus with diabetic neuropathy, unspecified; Z79.82 Long term (current) use of aspirin; Z68.34 Body mass index [BMI] 34.0-34.9, adult; Z79.4 Long term (current) use of insulin; Z79.84 Long term (current) use of oral hypoglycemic drugs; Z79.899 Other long term (current) drug therapy
CPT/HCPCS: 80048; 82947; 93005; 93010; A9270; C1781; J0690; J1100; J1170; J2250; J2371; J2405; J2704; J3010; J7120